=== PATIENT | female | born 1975 | race Hispanic/Latino ===

== ENCOUNTER → 2016-09-07 | Outpatient (CLI) | payer OTHER ==
[~2016-09-07] MED LIST: IBP800T PO; [UNRECOGNIZED DRUG - OTHER]
--- NOTE | 2016-09-07 19:03 | Diagnostic Imaging Report ---
EXAMINATION: Bilateral breast digital diagnostic mammogram with CAD. The current study was also evaluated with a Computer Aided Detection (CAD) system. INDICATION: Bilateral cystic lesions seen on ultrasound. Results from prior left breast biopsy with MRI guidance were returned negative for malignancy. COMPARISON: 02/07/16 and other prior exams were reviewed. FINDINGS: The breasts are composed of heterogenously dense parenchyma which may decrease mammographic sensitivity. There is a biopsy clip seen in the left breast. There is a circumscribed mass seen on multiple prior exams in the lateral aspect of the left breast compatible with the cyst seen by ultrasound. IMPRESSION: Stable mammographic findings. Dense breasts. Ultrasound evaluation pending. ACR BI-RADS Category 0: Incomplete. (Needs additional imaging evaluation). Result letter will be mailed to the patient. Note: At least 10% of breast cancer is not imaged by mammography. Dictated by: Dictated on workstation # [id number]
--- NOTE | 2016-09-07 19:11 | Diagnostic Imaging Report ---
EXAMINATION: Bilateral breast ultrasound. INDICATION: Followup nodules. FINDINGS: At the left breast 3:00 zone, a 0.7 cm hypoechoic lesion with depression. No internal vasculature is seen. In the right breast, a 1.4 cm hypoechoic lesion with consolidation and no internal vascularity is seen. Both lesions are essentially stable from 04/28/2014 exam. The rest of the breast parenchyma on both sides with the four quadrants and retroareolar region were scanned and and demonstrated no definite abnormality. IMPRESSION: Stable complicated cysts, bilaterally. No adverse development. No suspicious lesion. Annual screening mammogram is recommended. ACR BI-RADS Category 2: Benign findings. Result letter will be mailed to the patient. Note: At least 10% of breast cancer is not imaged by mammography. Dictated by: Dictated on workstation # [id number]
== END ==
LOC: RAD 13:07
PROVIDERS: ATTEND Nurse Practitioner Community Health
DX: R92.8 Other abnormal and inconclusive findings on diagnostic imaging of breast (principal)
CPT/HCPCS: 76642; 77066

== ENCOUNTER → 2017-11-16 | Outpatient (CLI) | payer SELFPAY ==
[~2017-11-16] MED LIST changes: +CATHETER FLUSH 10 ML SYR IV PRN; +IOHEXOL 350 MG/ML 100 ML (OMNIPAQUE 350) VIAL IV ONE; +NS 250 ML (IVPB) BAG IV ONE; +RECEIVED CONTRAST (Hold Metformin) IV SCH
--- NOTE | 2017-11-16 16:28 | Diagnostic Imaging Report ---
PROCEDURE: CT abdomen and pelvis with contrast. TECHNIQUE: Multiple contiguous axial images were obtained through the abdomen and pelvis after administration of intravenous contrast. INDICATION: Intermittent right lower quadrant pain x2 years. CORRELATION STUDY: None. FINDINGS: LOWER THORAX: Clear. Heart size enlarged. LIVER: Low attenuation suggestive of hepatic steatosis. There do appear to be slight asymmetric areas of early vascular enhancement anteriorly in the left lobe. No definitive focal lesion. GALLBLADDER: Present and unremarkable. No bile duct dilatation. SPLEEN: Unremarkable. Small splenule in the hilum. PANCREAS: Unremarkable. ADRENAL GLANDS: Unremarkable. KIDNEYS: Normal configuration. No calcification or obstruction. ABDOMINAL AORTA: Unremarkable, nonaneurysmal. GASTROINTESTINAL TRACT: Kxaf-[id number] severity fecal retention. Colonic diverticulosis is noted. No evidence for diverticulitis. There is a normal appendix in the right lower quadrant. Small bowel unremarkable. No abnormal ascites or free air. URINARY BLADDER: Unremarkable. REPRODUCTIVE: Uterus is slightly deviated towards the right. Cervix does appear to be perhaps slightly prominent and ill defined. No free pelvic fluid. OSSEOUS STRUCTURES: No acute abnormality. OTHER: None. IMPRESSION: 1. Negative for acute abnormality of the abdomen or pelvis. 2. Uterus is slightly deviated towards the right. Cervix is very slightly prominent and ill defined. 3. The appendix is unremarkable but is in close proximity to the uterus and right adnexa. Colonic diverticulosis without evidence for acute diverticulitis. Dictated by: Dictated on workstation # [id number]
== END ==
LOC: RAD 14:50
PROVIDERS: ATTEND Nurse Practitioner Community Health
DX: K57.30 Diverticulosis of large intestine without perforation or abscess without bleeding (principal); N85.8 Other specified noninflammatory disorders of uterus
CPT/HCPCS: 74177